=== PATIENT | male | born 1990 | race Hispanic/Latino ===

== ENCOUNTER 2021-09-29 21:01 | Emergency (ER) | payer SELFPAY ==
--- NOTE | 2021-09-29 22:48 | Emergency Department Report ---
ED Medical Clearance HPI - General Chief complaint: Medical Clearance Stated complaint: MEDICAL CLEARANCE TO FLY Time Seen by Provider: 09/29/21 21:24 Source: patient Mode of arrival: Ambulatory - History of Present Illness Initial comments: 31-year-old male who is visiting from [facility] and went to [place] 31-year-old during the flight down 2 weeks ago they report having about of dizziness. The dizziness occurred after having a few beers and chewing on nicotine patches simultaneously this was reported to the airline and the airline is requiring a medical screening evaluation to be done prior to them flying back. Patient states that they currently are asymptomatic and the symptoms although experience were transient in nature. Since that time they enjoyed entire 2 weeks right [place] going to all the theme [place] and riding all of the [employer] coasters and having fun with several parties with no complications or any issues. Report no significant past medical history recurrent medical problem this Traumatic Symptoms: denies traumatic injury Associated Symptoms: denies: chest pain, shortness of breath, palpitations, diaphoresis, cough, fever/chills, headaches, rash, seizure, syncope Treatments Prior to Arrival: none ED Review of Systems ROS: Stated complaint: MEDICAL CLEARANCE TO FLY Other details as noted in HPI Comment: All other systems reviewed and negative ED Physical Exam - General Limitations: No Limitations General appearance: alert, in no apparent distress - Head Head exam: Present: atraumatic, normocephalic - Eye Eye exam: Present: normal appearance, PERRL, EOMI Pupils: Present: normal accommodation - ENT ENT exam: Present: normal exam, mucous membranes moist - Neck Neck exam: Present: normal inspection - Respiratory Respiratory exam: Present: normal lung sounds bilaterally. Absent: respiratory distress, wheezes, rhonchi, chest wall tenderness - Cardiovascular Cardiovascular Exam: Present: regular rate, normal rhythm. Absent: systolic murmur, diastolic murmur, rubs, gallop - GI/Abdominal GI/Abdominal exam: Present: soft, normal bowel sounds - Rectal Rectal exam: Present: deferred - Extremities Exam Extremities exam: Present: normal inspection, full ROM, normal capillary refill - Back Exam Back exam: Present: normal inspection, full ROM. Absent: tenderness, CVA tenderness (L) - Neurological Exam Neurological exam: Present: alert, oriented X3, CN II-XII intact, normal gait - Psychiatric Psychiatric exam: Present: normal affect, normal mood - Skin Skin exam: Present: warm, dry, intact, normal color. Absent: rash, cyanosis, diaphoretic ED Course Vital Signs 09/29/21 21:29 Temperature 98.4 F Pulse Rate 65 Respiratory 18 Rate Blood Pressure 118/96 O2 Sat by Pulse 99 Oximetry ED Disposition Clinical Impression: Encounter for medical screening examination Disposition: HOME / SELF CARE / HOMELESS Is pt being admited?: No Does the pt Need Aspirin: No Condition: Stable Instructions: Medical Screening Exam Additional Instructions: Medicine emergency department for a medical evaluation for fire safety Mr. Gutiérrez has no gross limiting factors which prevent him from flying back to the [place] Referrals: PRIMARY CARE, [Referring] - 3-5 Days
[2021-09-29 23:14] VITALS: BP 118/96
== END 2021-09-29 22:59 | disposition home or self-care (01) ==
LOC: ED 21:01
DX: Z00.00 Encounter for general adult medical examination without abnormal findings (principal); R42 Dizziness and giddiness
CPT/HCPCS: 99282